=== PATIENT | female | born 1980 | race Caucasian/White ===

== ENCOUNTER 2020-03-20 18:00 | Outpatient (CLI) | payer BC | END 2020-03-20 18:01 | disposition home or self-care (01) | LOC: SLEEPLAB 18:00 | PROVIDERS: ATTEND Family Medicine | DX: G47.33 Obstructive sleep apnea (adult) (pediatric) (principal); G47.9 Sleep disorder, unspecified; R53.83 Other fatigue; G47.00 Insomnia, unspecified; R06.83 Snoring; I10 Essential (primary) hypertension; E66.9 Obesity, unspecified; Z68.43 Body mass index [BMI] 50.0-59.9, adult | CPT/HCPCS: 95806 ==

== ENCOUNTER 2020-09-04 16:03 | Outpatient (CLI) | payer OTHER | END 2020-09-04 16:04 | disposition home or self-care (01) | LOC: DTY/OP 16:03 | PROVIDERS: ATTEND Specialist | DX: Z01.818 Encounter for other preprocedural examination (principal); E66.01 Morbid (severe) obesity due to excess calories | CPT/HCPCS: 97802 ==

== ENCOUNTER 2020-12-01 13:45 | Inpatient (IN) | payer OTHER ==
[2020-12-05 08:29] VITALS: BMI 51.0
[2020-12-06] MEDS ORDERED: Heparin 5,000 UNITS/ML VIAL ONE (07:53)
[2020-12-06] MEDS ORDERED: cefOXitin Sodium/Dextrose 2 GM/50 ML BAG ONE ×2 (07:54→10:21)
[2020-12-06] MEDS ORDERED: Scopolamine 1.5 mg/72 hour Patch ONE (07:54)
[2020-12-06] MEDS ORDERED: Ketorolac Tromethamine 30 MG/ML VIAL ONE (07:54)
[2020-12-06] MEDS ORDERED: Acetaminophen 500 MG TAB ONE (07:54)
[2020-12-06 08:22] LABS: #Basophils 0.1 thou/uL (0.0-0.2); #Eosinphils 0.1 thou/uL (0.0-0.7); #Lymphocytes 2.4 thou/uL (1.20-3.40); #Monocytes 0.7 thou/uL (0.11-0.59); #Neutrophils 5.6 thou/uL (1.40-6.50); %Basophils 0.7 % (0.0-1.0); %Eosinophils 1.2 % (0.0-10.0); %Lymphocytes 27.3 % (21.0-51.0); %Monocytes 7.7 % (0.0-10.0); %Neutrophils 63.1 % (42.0-75.0); Hemoglobin 13.3 g/dL (12.0-16.0); Mean Corpuscular HGB CONC 32.1 g/dL (32.0-36.0); Mean Corpuscular Hemoglobin 28.5 pg (27.0-31.0); Mean Corpuscular Volume 88.9 fL (78.0-98.0); Mean Platelet Volume 9.5 fL (7.4-10.4); Platelet Count 250 thou/uL (130-400); RBC Distribution Width 13.6 % (11.5-14.5); Red Blood Cell (RBC) Count 4.66 mill/uL (4.20-5.40); White Blood Cell (WBC) Count 8.8 thou/uL (4.8-10.8)
[2020-12-06 08:28] LABS: Hemoglobin A1c 5.7 % (4.0-6.0)
[2020-12-06] MEDS ORDERED: Bupivacaine 0.25% HCL 30 ML VIAL ONE (09:16)
[2020-12-06] MEDS ORDERED: Lidocaine 1% w/Epinephrine 1:100K 20 ML VIAL ONE (09:16)
[2020-12-06] MEDS ORDERED: Hydrocodone-Acetamin 15 ML UDCUP PO PRN (09:21)
[2020-12-06] MEDS ORDERED: diphenhydrAMINE 50 MG/ML VIAL IVP PRN (09:21)
[2020-12-06] MEDS ORDERED: Morphine 4 MG/ML VIAL SLOW IVP PRN (09:21)
[2020-12-06] MEDS ORDERED: Acetaminophen 650 MG/20.3 ML UDCUP PO PRN (09:21)
[2020-12-06] MEDS ORDERED: Morphine 2 MG/ML VIAL SLOW IVP PRN (09:21)
[2020-12-06] MEDS ORDERED: Promethazine HCl 25 MG/ML VIAL IM PRN (09:21)
[2020-12-06] MEDS ORDERED: hydrALAZINE 20 MG/ML VIAL SLOW IVP PRN (09:21)
[2020-12-06] MEDS ORDERED: Fentanyl 100 MCG/2 ML VIAL ONE ×4 (09:26→12:25)
[2020-12-06] MEDS ORDERED: Sodium Chloride 0.9% (PF) 10 ML VIAL FS PRN (09:45)
[2020-12-06] MEDS ORDERED: Rocuronium Bromide 10 MG/ML (10ML VIAL) ONE (09:54)
[2020-12-06] MEDS ORDERED: PROPOFOL 200 MG/20 ML VIAL ONE (09:54)
[2020-12-06] MEDS ORDERED: Dexamethasone 20 MG/5 ML VIAL ONE (09:54)
[2020-12-06] MEDS ORDERED: Ondansetron PF 4 MG/2 ML Vial ONE (09:54)
[2020-12-06] MEDS ORDERED: Lidocaine 1% PF 5 ML VIAL ONE (09:54)
[2020-12-06] MEDS ORDERED: Glycopyrrolate 0.2 MG/ML 5 ML SYRINGE ONE (09:54)
[2020-12-06] MEDS ORDERED: SUGAMMADEX SODIUM 200 MG/2 ML VIAL ONE (11:12)
[2020-12-06] MEDS ORDERED: Promethazine HCl 25 MG/ML VIAL ONE (11:41)
[2020-12-06] MEDS: Ketorolac Tromethamine 30 MG/ML VIAL IVP SCH ×3 (13:52→23:04)
[2020-12-06] MEDS: Ondansetron PF 4 MG/2 ML Vial IVP PRN ×2 (13:52→21:46)
[2020-12-06] MEDS: D5 1/2 NS w/20 mEq KCL 1,000 ML IV SCH ×2 (13:58→21:46)
[2020-12-06] MEDS ORDERED: Enoxaparin Sodium 40 MG/0.4 ML SYRINGE SC SCH (21:00)
[2020-12-06] MEDS: Lisinopril 10 MG TAB PO SCH (21:46)
[2020-12-07] MEDS: D5 1/2 NS w/20 mEq KCL 1,000 ML IV SCH ×2 (02:40→05:17)
[2020-12-07] MEDS: Ketorolac Tromethamine 30 MG/ML VIAL IVP SCH (05:17)
[2020-12-07 05:35] VITALS: TEMP 98.1
[2020-12-07 07:01] LABS: #Lymphocytes 1.6 thou/uL (1.20-3.40); #Monocytes 1.1 thou/uL (0.11-0.59); #Neutrophils 11.6 thou/uL (1.40-6.50); %Eosinophils 0.1 % (0.0-10.0); %Lymphocytes 11.1 % (21.0-51.0); %Monocytes 7.5 % (0.0-10.0); %Neutrophils 81.2 % (42.0-75.0); Hemoglobin 12.6 g/dL (12.0-16.0); Mean Corpuscular HGB CONC 32.3 g/dL (32.0-36.0); Mean Corpuscular Hemoglobin 28.8 pg (27.0-31.0); Mean Corpuscular Volume 89.1 fL (78.0-98.0); Platelet Count 298 thou/uL (130-400); RBC Distribution Width 13.6 % (11.5-14.5); Red Blood Cell (RBC) Count 4.37 mill/uL (4.20-5.40); White Blood Cell (WBC) Count 14.3 thou/uL (4.8-10.8)
[2020-12-07 07:25] LABS: Anion Gap 12 mmol/L (10-20); BUN (Urea Nitrogen) 4 mg/dL (7.0-18.7); Calc. Creatinine Clearance 242 mL/min (70-130); Calcium 8.8 mg/dL (7.8-10.44); Carbon Dioxide 26 mmol/L (22-29); Chloride 104 mmol/L (98-107); Glucose 134 mg/dL (70-105); Sodium 138 mmol/L (136-145)
[2020-12-07 07:59] VITALS: BP 117/75
[2020-12-07] MEDS ORDERED: Pantoprazole 40 MG VIAL IVP SCH (09:00)
[2020-12-07] MEDS ORDERED: Ondansetron ORAL SOLN. 4 MG/5 ML UDCUP PO PRN (09:26)
[2020-12-07] MEDS ORDERED: Ondansetron ODT 8 MG TAB SL PRN (09:26)
[2020-12-07] MEDS: Ondansetron PF 4 MG/2 ML Vial IVP PRN (09:32)
[2020-12-07] MEDS: Lisinopril 10 MG TAB PO SCH (09:32)
== END 2020-12-07 11:58 | disposition home or self-care (01) | DRG 621 ==
LOC: SURG A 12-06 07:41 → EDSTATUS 12-06 13:45
PROVIDERS: ADMIT Specialist; ATTEND Specialist
PROC: 0DB64Z3 Excision of Stomach, Percutaneous Endoscopic Approach, Vertical (ICD-10-PCS; principal; 2020-12-06)
PROC: 0DJ08ZZ Inspection of Upper Intestinal Tract, Via Natural or Artificial Opening Endoscopic (ICD-10-PCS; 2020-12-06)
DX: E66.01 Morbid (severe) obesity due to excess calories (principal); Z68.43 Body mass index [BMI] 50.0-59.9, adult; Z20.822 Contact with and (suspected) exposure to COVID-19; I10 Essential (primary) hypertension; G47.30 Sleep apnea, unspecified; R73.03 Prediabetes; M25.50 Pain in unspecified joint; Z79.899 Other long term (current) drug therapy
CPT/HCPCS: 36415; 80048; 83036; 85025; 88307; C9113; J0694; J1100; J1644; J1650; J1885; J2270; J2405; J2550; J2704; J3010; J3480; S0020

== ENCOUNTER 2020-12-01 13:48 | Outpatient (CLI) | payer OTHER ==
[2020-12-01 15:03] LABS: Anion Gap 15 mmol/L (10-20); BUN (Urea Nitrogen) 19 mg/dL (7.0-18.7); Calc. Creatinine Clearance 0 mL/min (70-130); Calcium 9.7 mg/dL (7.8-10.44); Carbon Dioxide 23 mmol/L (22-29); Chloride 106 mmol/L (98-107); Glucose 94 mg/dL (70-105); Potassium 4.6 mmol/L (3.5-5.1); Sodium 139 mmol/L (136-145)
[2020-12-02 12:44] LABS: SARS-CoV-2 PCR by NAA Not Detected (NotDetected)
== END 2020-12-01 13:49 | disposition home or self-care (01) ==
LOC: LABBT 13:48
PROVIDERS: ATTEND Specialist
DX: Z01.818 Encounter for other preprocedural examination (principal); E66.01 Morbid (severe) obesity due to excess calories; M54.5 Low back pain; M25.50 Pain in unspecified joint; G89.29 Other chronic pain; G47.30 Sleep apnea, unspecified; R73.03 Prediabetes; Z68.43 Body mass index [BMI] 50.0-59.9, adult; Z20.822 Contact with and (suspected) exposure to COVID-19
CPT/HCPCS: 80048; 93005; 93010; U0003; U0005